=== PATIENT | female | born 1990 | race Caucasian/White ===

== ENCOUNTER 2021-10-23 10:16 | Emergency (ER) | payer OTHER ==
[~2021-10-23] VITALS: Ht 167.6 cm; Wt 77.3 kg
[2021-10-23] MEDS ORDERED: NS 1,000 ML IV ONE ×2 (10:45→13:20)
[2021-10-23 12:02] LABS: BASO % 0.6 % (0.0-1.0); EOS % 0.6 % (0.0-3.0); HEMATOCRIT 38.7 % (36.0-47.0); HEMOGLOBIN 13.1 g/dl (12.0-15.5); LYMPH # 1.1 10^3/uL (1.5-5.0); MEAN CORPUSCULAR HEMOGLOBIN 30.2 pg (27.0-33.0); MEAN CORPUSCULAR HGB CONC 33.9 g/dl (32.0-36.5); MEAN CORPUSCULAR VOLUME 89.2 fl (80.0-96.0); MONO # 0.3 10^3/uL (0.0-0.8); MONO % 6.4 % (2.0-8.0); NEUTROPHILS # 3.9 10^3/uL (1.5-8.5); NEUTROPHILS % 72.2 % (36.0-66.0); PLATELET COUNT, AUTOMATED 186 10^3/uL (150-450); RED BLOOD COUNT 4.34 10^6/uL (4.00-5.40); WHITE BLOOD COUNT 5.4 10^3/uL (4.0-10.0)
[2021-10-23 12:49] LABS: BLOOD UREA NITROGEN 12 MG/DL (7-18); CALCIUM LEVEL 8.9 MG/DL (8.5-10.1); CARBON DIOXIDE LEVEL 27 MEQ/L (21-32); CHLORIDE LEVEL 110 MEQ/L (98-107); CREATININE FOR GFR 0.69 MG/DL (0.55-1.30); ETHYL ALCOHOL (ETHANOL) < 0.003 % (0.000-0.010); FREE T4 0.94 NG/DL (0.76-1.46); GLOMERULAR FILTRATION RATE > 60.0 (>60); GLUCOSE, FASTING 95 MG/DL (70-100); MAGNESIUM LEVEL 1.9 MG/DL (1.8-2.4); POTASSIUM SERUM 4.1 MEQ/L (3.5-5.1); SODIUM LEVEL 143 MEQ/L (136-145); THYROID STIMULATING HORMONE 0.778 uIU/ML (0.358-3.740)
[2021-10-23 12:56] LABS: AMPHETAMINES LEVEL URINE NEGATIVE (NEGATIVE); BARBITURATES URINE NEGATIVE (NEGATIVE); BENZODIAZEPINES URINE NEGATIVE (NEGATIVE); CANNABINOIDS URINE NEGATIVE (NEGATIVE); COCAINE METABOLITE URINE NEGATIVE (NEGATIVE); METHADONE URINE NEGATIVE (NEGATIVE); OPIATES URINE NEGATIVE (NEGATIVE); PHENCYCLIDINE URINE NEGATIVE (NEGATIVE)
[2021-10-23] MEDS ORDERED: TIZA10TA (12:58)
[2021-10-23] MEDS ORDERED: NAPR-885 (12:58)
[2021-10-23 15:28] LABS: RSV AMPLIFICATION NEGATIVE (NEGATIVE)
[2021-10-23 16:15] VITALS: BP 118/61
== END 2021-10-23 16:31 | disposition home or self-care (01) ==
LOC: EDBD 10:16 → M ED 10:16
DX: I95.1 Orthostatic hypotension (principal); E11.9 Type 2 diabetes mellitus without complications; F32.A Depression, unspecified; F41.9 Anxiety disorder, unspecified; Z87.442 Personal history of urinary calculi; Z79.899 Other long term (current) drug therapy; Z87.891 Personal history of nicotine dependence

== ENCOUNTER 2021-10-25 10:05 | Outpatient (RCR) | payer OTHER ==
[~2021-10-25 10:05] MED LIST: NAPR-885; TIZA10TA
== END 2021-10-31 ==
LOC: M PT 10:05
PROVIDERS: ATTEND Physician Assistant
DX: M54.6 Pain in thoracic spine (principal)